=== PATIENT | female | born 1980 | race Caucasian/White ===

== ENCOUNTER 2017-07-16 23:00 | Emergency (ER) | payer MEDICAID ==
[~2017-07-16] VITALS: Ht 157.5 cm; Wt 68.2 kg
[2017-07-17 00:27] LABS: BASOPHILS % (AUTO) 0.5 % (0-1); EOSINOPHILS # (AUTO) 0.2 X10'3 (0-0.9); EOSINOPHILS % (AUTO) 3.8 % (0-6); HEMATOCRIT 35.3 % (35.0-45.0); HEMOGLOBIN 11.9 g/dl (12.0-16.0); LYMPHOCYTES # (AUTO) 2.4 X10'3 (1.1-4.8); LYMPHOCYTES % (AUTO) 40.6 % (21-51); MEAN CORPUSCULAR HGB CONC 33.6 % (33.0-36.5); MEAN CORPUSCULAR VOLUME 89.3 FL (78-98); MEAN PLATELET VOLUME 7.9 FL (7.4-10.4); MONOCYTES # (AUTO) 0.5 X10'3 (0-0.9); MONOCYTES % (AUTO) 8.6 % (2-12); NEUTROPHILS # (AUTO) 2.8 X10'3 (1.8-7.7); NEUTROPHILS % (AUTO) 46.5 % (42-75); PLATELET COUNT 258 X10'3 (140-440); RED BLOOD COUNT 3.96 X10'6 (4.20-5.60); RED CELL DISTRIBUTION WIDTH 13.2 % (11.5-14.5)
[2017-07-17 00:44] LABS: ALANINE AMINOTRANSFERASE 366 U/L (12-78); ALBUMIN 3.5 G/DL (3.4-5.0); ALKALINE PHOSPHATASE 188 IU/L (46-116); ANION GAP 9 (8-16); ASPARTATE AMINO TRANSFERASE 127 U/L (10-37); BILIRUBIN,TOTAL 0.2 MG/DL (0.1-1.0); BLOOD UREA NITROGEN 16 MG/DL (7-18); BUN/CREATININE RATIO 21.3 (6.6-38.0); CALCIUM 9.6 MG/DL (8.5-10.1); CHLORIDE 106 MMOL/L (99-107); CREATININE 0.75 MG/DL (0.40-0.90); GLUCOSE 113 MG/DL (70-104); MAGNESIUM 1.7 MG/DL (1.5-2.4); POTASSIUM 3.2 MMOL/L (3.5-5.1); SODIUM 143 MMOL/L (135-145); TOTAL CARBON DIOXIDE 28.1 MMOL/L (24-32); TOTAL PROTEIN 7.1 G/DL (6.4-8.2); eGFR 88 ML/MIN
[2017-07-17 00:57] LABS: HCG SERUM QL NEGATIVE
[2017-07-17] MEDS ORDERED: potassium Cl 20 mEq SR tablet PO ONE (01:05)
[2017-07-17 01:45] VITALS: BP 108/61
== END 2017-07-17 01:50 | disposition home or self-care (01) ==
LOC: ER 23:01
DX: I49.3 Ventricular premature depolarization (principal); E87.6 Hypokalemia; R74.0 Nonspecific elevation of levels of transaminase and lactic acid dehydrogenase [LDH]; G89.29 Other chronic pain; Z86.79 Personal history of other diseases of the circulatory system; Z88.8 Allergy status to other drugs, medicaments and biological substances
CPT/HCPCS: 36415; 80053; 82948; 83735; 84703; 85025; 93005; 99285

== ENCOUNTER 2021-03-20 14:01 | Emergency (ER) | payer MEDICAID ==
[~2021-03-20 14:01] MED LIST: TOBR5DRO2 EACHEYE
== END 2021-03-20 15:54 | disposition left against medical advice (07) ==
LOC: ER 14:01
DX: Z00.00 Encounter for general adult medical examination without abnormal findings (principal); Z53.21 Procedure and treatment not carried out due to patient leaving prior to being seen by health care provider

== ENCOUNTER 2021-12-24 15:14 | Emergency (ER) | payer MEDICAID ==
[~2021-12-24] VITALS: Ht 157.5 cm; Wt 71.4 kg
[2021-12-24 15:41] VITALS: BP 143/91
[2021-12-24] MEDS ORDERED: HYDROcodone/acetaminophen 5mg/325mg tablet PO ONE (16:35)
[2021-12-24] MEDS ORDERED: amox tr/potassium clavulanate 875/125mg TAB PO ONE (16:35)
[2021-12-24] MEDS ORDERED: ondansetron 4mg rapidly disintigrating tab PO ONE (16:35)
[2021-12-24] MEDS ORDERED: HYDR-3965 PO (16:38)
[2021-12-24] MEDS ORDERED: AMOX-117 PO (16:38)
[2021-12-24] MEDS ORDERED: ONDA4TAB12 PO (16:38)
== END 2021-12-24 16:52 | disposition home or self-care (01) ==
LOC: ER 15:15
DX: K08.89 Other specified disorders of teeth and supporting structures (principal); R68.84 Jaw pain; H92.09 Otalgia, unspecified ear
CPT/HCPCS: 99284